=== PATIENT | female | born 1995 | race Caucasian/White ===

== ENCOUNTER 2019-08-15 09:07 | Emergency (ER) | payer OTHER ==
[~2019-08-15] VITALS: Ht 152.4 cm; Wt 44.0 kg
[2019-08-15 10:00] VITALS: BP 124/83
[2019-08-15] MEDS ORDERED: BACTRIM DS TAB1 EACH PO (10:13)
== END 2019-08-15 10:44 | disposition home or self-care (01) ==
LOC: ER 09:07
DX: L02.413 Cutaneous abscess of right upper limb (principal); F17.210 Nicotine dependence, cigarettes, uncomplicated

== ENCOUNTER 2019-11-24 19:37 | Emergency (ER) | payer OTHER ==
[~2019-11-24] VITALS: Ht 152.4 cm; Wt 44.0 kg
[~2019-11-24 19:37] MED LIST: BACTRIM DS TAB1 EACH PO
[2019-11-24 21:08] LABS: URINE BILIRUBIN NEGATIVE (Negative); URINE BLOOD NEGATIVE (Negative); URINE CLARITY SL CLOUDY; URINE COLOR YELLOW; URINE GLUCOSE-RANDOM* NEGATIVE (Negative); URINE KETONES NEGATIVE (Negative); URINE NITRITE-REFLEX NEGATIVE (Negative); URINE PROTEIN (DIPSTICK) 2+ (Negative)
[2019-11-24 21:11] LABS: URINE LEUKOCYTES-REFLEX 1+ (Negative)
[2019-11-24 21:21] LABS: BACTERIA-REFLEX 1-9 Few /HPF (None Seen); CASTS None Seen /LPF (None Seen); CRYSTALS None Seen /LPF (None Seen); SQUAMOUS >10 Many /LPF (0-3); URINE RBC None Seen /HPF (0-2); URINE WBC-REFLEX >25 Many /HPF (0-5); YEAST-REFLEX Present (None Seen)
[2019-11-24] MEDS ORDERED: FLAGYL500 M1 PO (21:51)
[2019-11-24] MEDS ORDERED: BACTRIM DS TAB1 EACH PO (21:51)
[2019-11-24] MEDS ORDERED: DIFLUCAN150 MG PO (21:51)
[2019-11-24 22:01] VITALS: BP 112/60
[2019-11-26 11:28] LABS: HSV PCR SOURCE VAGINAL
== END 2019-11-24 22:02 | disposition home or self-care (01) ==
LOC: ER 19:37
PROVIDERS: Physician Assistant
DX: N39.0 Urinary tract infection, site not specified (principal); N76.0 Acute vaginitis; N75.0 Cyst of Bartholin's gland; F17.210 Nicotine dependence, cigarettes, uncomplicated

== ENCOUNTER 2020-02-16 18:48 | Emergency (ER) | payer OTHER ==
[~2020-02-16] VITALS: Ht 152.4 cm; Wt 44.0 kg
[~2020-02-16 18:48] MED LIST changes: +DIFLUCAN150 MG PO; +FLAGYL500 M1 PO
[2020-02-16] MEDS ORDERED: CLEOCIN HCL150 MG PO (21:40)
[2020-02-16 22:09] VITALS: BP 104/71
== END 2020-02-16 22:08 | disposition home or self-care (01) ==
LOC: ER 18:48
DX: L02.415 Cutaneous abscess of right lower limb (principal); F17.210 Nicotine dependence, cigarettes, uncomplicated

== ENCOUNTER 2020-06-02 13:25 | Emergency (ER) | payer OTHER ==
[~2020-06-02] VITALS: Ht 152.4 cm; Wt 43.1 kg
[~2020-06-02 13:25] MED LIST changes: +CLEOCIN HCL150 MG PO
[2020-06-02 13:30] VITALS: BP 121/78
== END 2020-06-02 16:51 | disposition left against medical advice (07) ==
LOC: ER 13:25
DX: L02.414 Cutaneous abscess of left upper limb (principal); R50.9 Fever, unspecified; F17.210 Nicotine dependence, cigarettes, uncomplicated; Z79.2 Long term (current) use of antibiotics